=== PATIENT | male | born 1960 | race Caucasian/White ===

== ENCOUNTER → 2024-12-21 13:29 | Outpatient (CLI) | payer OTHER, SELFPAY ==
--- NOTE | 2024-12-21 13:33 | DI.CT.S_ITS ---
PROCEDURE: CT CHEST WO CON INDICATIONS: aneurysm ascending aorta TECHNIQUE: Noncontrast 5 mm thick sections acquired from the pulmonary apices to the posterior costophrenic angles. 1 mm lung window, 5 mm thick coronal and sagittal and 7 mm axial MIP reformats were then acquired. For radiation dose reduction, the following was used: automated exposure control, adjustment of mA and/or kV according to patient size. COMPARISON: None. FINDINGS: Image quality: Diagnostic. Lower Neck: No enlarged lymph nodes. Thyroid: No thyroid nodules which require sonographic follow up, per consensus guidelines. Axillae: No enlarged lymph nodes. Chest Wall: Pacemaking/defibrillation device and dual chamber leads in expected positions. Bones: Unremarkable. Lungs and Pleura: No pneumothorax or pleural effusions. No consolidation or suspicious nodules. Heart: Heart size is normal. No pericardial effusion. Thoracic Vessels: The aorta and pulmonary arteries demonstrate normal size. Mediastinum and Josselyn: No enlarged lymph nodes. Esophagus: No wall thickening. No hiatal hernia. Upper Abdomen: Visualized upper abdomen solid organs and bowel loops appear normal. IMPRESSION: Pacemaker and leads as discussed. No cardiomegaly or CHF. No aneurysm found. Dictated by: Gianni Mckay M.D. on 12/22/2024 at 11:46 Approved by: Gianni Mckay M.D. on 12/22/2024 at 11:48
== END ==
PROVIDERS: Referring Provider Internal Medicine; Visit Provider Internal Medicine
DX: I71.21 Aneurysm of the ascending aorta, without rupture (principal); Z95.0 Presence of cardiac pacemaker
CPT/HCPCS: 71250

== ENCOUNTER → 2025-01-27 14:24 | Outpatient (CLI) | payer OTHER, SELFPAY ==
--- NOTE | 2025-01-27 14:26 | DI.ECHO.S_ITS ---
[facility] : : [address] : : [place] : : [id number] : : Phone: [phone] Echocardiogram Report + + :Name: LEONOR JENKINS Study Date: 01/27/2025 Height: 73 in : :[facility] ReadingLocation: Weight: 376 lb: : Gender: Male BSA: 2.8 m2 : :: 1960 Age: 64 yrs : :Reason For Study: SYSTOLIC HEART FAILURE : :Ordering Physician: FRANCIS JACKSON Performed By: Ayan Dejesus : :Referring: FRANCIS JACKSON : + + Interpretation Summary TDS - PT SCANNED SUPINE DUE TO BAD SHOULDER, MORBID OBESITY, LUNG INTERFERENCE 1. The left ventricular contractility is mildly compromised. Estimate ejection fraction is 40 to 45% with global hypokinesis. Mild to moderate concentric LVH. Grade 1 diastolic dysfunction. 2. The right ventricle was not well-visualized. However in limited views, the contractility appears to be preserved. 3. Mild right atrial enlargement noted. The left ventricular cavity is mildly dilated. 4. No significant valvular abnormalities noted. 5. No obvious intracardiac shunts. 6. No intracardiac masses nor thrombi. 7. No hemodynamically significant pericardial effusion. 8. Low right-sided filling pressures. 9. Mildly dilated aortic root without obvious dissection. Conclusion: Mildly compromised left ventricular systolic function with no significant valvular abnormalities. Procedure: A two-dimensional transthoracic echocardiogram with color flow and Doppler was performed. The study quality was technically difficult. A contrast injection of Definity was performed to improve assessment of LV function. There is no prior echocardiogram noted for this patient. The patient was in normal sinus rhythm during the exam. Left Ventricle: The left ventricle is mildly dilated. Left ventricular wall thickness is mild-moderately increased. There is no ventricular septal defect visualized. The ejection fraction is estimated to be 40-45%. There is mild global hypokinesis of the left ventricle. Diastolic parameters suggest a relaxation abnormality of the left ventricle, consistent with probable normal filling pressures. Right Ventricle: The right ventricle is not well visualized. Atria: The left atrial size is normal. The right atrium is mildly dilated. There is no Doppler evidence for an interatrial shunt. Mitral Valve: The mitral valve leaflets appear normal. There is no evidence of stenosis, fluttering, or prolapse. There is no mitral regurgitation noted. Aortic Valve: The aortic valve is grossly normal. No aortic regurgitation is present. Tricuspid Valve: The tricuspid valve is not well visualized. No tricuspid regurgitation. Pulmonic Valve: The pulmonic valve is not well visualized. There is no pulmonic valvular regurgitation. Great Vessels: The aortic root is mildly dilated. The ascending aorta is at the upper limits of normal in size. The pulmonary artery is normal size. The IVC is of normal diameter and collapses greater than 50% with a sniff. This suggests a low right atrial pressure of 3 mm Hg. Pericardium/ Pleura There is no pericardial effusion. There is no pleural effusion. MMode/2D Measurements & Calculations LVIDd: 6.2 cm LVOT diam: 2.7 cm LVIDs: 4.9 cm Ao root diam: 4.1 cm FS: 21.2 % asc Aorta Diam: 3.7 cm EPSS: 2.0 cm IVSd: 1.4 cm LVPWd: 1.4 cm LV cordova. diameter/BSA (cm/m^2): 2.2 LV sys. diameter/BSA (cm/m^2): 1.7 LA A2 area: 28.7 cm2 RA long axis: 4.8 cm LA A4 area: 24.5 cm2 RA area: 19.2 cm2 LA length (vol): 6.5 cm RA vol: 65.5 ml LA vol: 91.6 ml RA : 23.3 ml/m2 LA vol index: 32.5 ml/m2 IVC diam: 1.7 cm TAPSE: 2.8 cm Doppler Measurements & Calculations Ao V2 max: 137.3 cm/sec LVOT Max Matthew: 99.4 cm/sec Ao V2 mean: 103.9 cm/sec LV V1 max P.9 mmHg Ao max P.5 mmHg LV V1 VTI: 20.4 cm Ao mean P.7 mmHg KHARI(I,D): 3.9 cm2 Ao V2 VTI: 29.6 cm KHARI(V,D): 4.1 cm2 sev ratio: 0.69 KHARI indexed to BSA (cm^2/m^2): 1.4 MV E max matthew: 52.4 cm/sec PA V2 max: 65.6 cm/sec MV A max matthew: 100.1 cm/sec PA V2 mean: 44.1 cm/sec MV E/A: 0.52 PA mean P.88 mmHg MV dec time: 0.29 sec PA pr(Accel): 37.9 mmHg SV(LVOT): 116.6 ml Reading Physician:RADHA
== END ==
LOC: ECHO 14:26
PROVIDERS: Referring Provider Internal Medicine; Visit Provider Internal Medicine
DX: I50.22 Chronic systolic (congestive) heart failure (principal); I77.810 Thoracic aortic ectasia
CPT/HCPCS: C8929; Q9957

== ENCOUNTER → 2025-03-13 12:33 | Outpatient (CLI) | payer OTHER, SELFPAY ==
--- NOTE | 2025-03-14 16:52 | DI.NM.S_ITS ---
DATE OF SERVICE: 03/13/2025 PHARMACOLOGICAL PERFUSION STUDY INDICATIONS: Congestive heart failure, AFib, Bi-V AICD. Perfusion study is being done for CAD risk stratification. RADIOPHARMACEUTICAL: 26.6 millicurie technetium-99m Myoview IV was injected at stress and 27.5 millicurie technetium-99m Myoview IV was injected at rest. CARDIAC STRESS: The patient underwent IV Lexiscan perfusion study under the supervision of an attending staff using standard intravenous Lexiscan as per protocol. The patient remained hemodynamically stable. Baseline rhythm is A-sensed and ventricular-paced rhythm. Baseline blood pressure 142/98. During stress, no convincing new ischemic changes or arrhythmias. No chest pain. RAW DATA: The patient's weight is 364 pounds. Increased subdiaphragmatic activity. GATED STUDY: Resting LV ejection fraction 45 and stress LV ejection fraction 51%. No obvious wall motion abnormalities seen, however, quality is not good. Resting end-diastolic volume 209 mL suggestive of dilated LV. TID ratio 0.85, which is within normal limits. Lung/heart ratio 0.30, which is within normal limits. MYOCARDIAL PERFUSION SCAN: Stress supine, resting supine images were compared to each other. Please note that there is no stress prone images. The patient has predominantly fixed moderate-size severely decreased perfusion of basal inferolateral wall as well as basal inferior wall and distal inferolateral wall without any significant reversible ischemia. CONCLUSION: 1. No significant reversible ischemia. 2. Predominantly fixed severely decreased perfusion of basal inferior wall extending into the basal inferolateral and distal inferolateral wall. There are no prone images. The patient's weight is 364 pounds. There is increased subdiaphragmatic activity. This could be due to persistent tissue attenuation artifact, however, cannot rule out possibility of nontransmural myocardial infarction in those segments. Correlate clinically. 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
== END ==
LOC: NUCM 12:34
PROVIDERS: Referring Provider Internal Medicine; Visit Provider Internal Medicine
DX: I50.22 Chronic systolic (congestive) heart failure (principal); I48.91 Unspecified atrial fibrillation; E66.01 Morbid (severe) obesity due to excess calories; Z68.42 Body mass index [BMI] 45.0-49.9, adult; Z95.810 Presence of automatic (implantable) cardiac defibrillator
CPT/HCPCS: 78452; 93017; A9502; J2785

== ENCOUNTER → 2025-08-18 12:22 | Outpatient (CLI) | payer OTHER, SELFPAY ==
--- NOTE | 2025-08-18 01:05 | DI.ECHO.S_ITS ---
[facility]---------+ [facility] : : [address] : : [place] : : [id number] : : Phone: [phone] Echocardiogram Report + + :Name: LEONOR JENKINS Study Date: 08/18/2025 Height: 75 in : :Hospital ReadingLocation: Weight: 355 lb: : Gender: Male BSA: 2.8 m2 : :: 1960 Age: 65 yrs : :Reason For Study: CHRONIC HEART FAILURE : :Ordering Physician: FRANCIS JACKSON Performed By: Ayan Dejesus : :Referring: FRANCIS JACKSON : + + Interpretation Summary TDS - MORBID OBESITY, LUNG INTERFERENCE, UNABLE TO POSITION FOR EXAM - SCANNED SUPINE Technically difficult study secondary to poor acoustic windows. Intracardiac echo contrast utilized. - The left ventricular contractility is borderline. Estimated ejection fraction is approximately 50 to 55% with no segmental wall motion abnormalities. Mild to moderate concentric LVH. - The right ventricle was not well-visualized. - No obvious valvular insufficiencies noted on Doppler interrogation. - Mildly dilated aortic root without obvious dissection. - No obvious intracardiac masses nor thrombi. - No hemodynamically significant pericardial effusion. Conclusion: Low normal left ventricular systolic function. When compared with previous echocardiogram, there appears to be improvement of the left ventricular systolic function. Procedure: A two-dimensional transthoracic echocardiogram with color flow and Doppler was performed in limited views only to assess EF. A contrast injection of Definity was performed to improve assessment of LV function. The study quality was technically difficult. Comparison is made with the echocardiogram of 01/27/2025. The patient was in normal sinus rhythm during the exam. Left Ventricle: The left ventricle is normal in size. Left ventricular wall thickness is mild-moderately increased. The ejection fraction is estimated to be 50-55%. Mitral Valve: There is no mitral regurgitation noted. Aortic Valve: No aortic regurgitation is present. Tricuspid Valve: No tricuspid regurgitation. Pulmonic Valve: There is no pulmonic valvular regurgitation. Great Vessels: The aortic root is mildly dilated. The ascending aorta is mildly enlarged. Pericardium/ Pleura There is no pericardial effusion. MMode/2D Measurements & Calculations LVIDd: 5.8 cm Ao root diam: 4.1 cm LVIDs: 4.0 cm asc Aorta Diam: 3.8 cm FS: 31.3 % IVSd: 1.3 cm LVPWd: 1.4 cm LV cordova. diameter/BSA (cm/m^2): 2.1 LV sys. diameter/BSA (cm/m^2): 1.4 Reading Physician:RADHA
== END ==
LOC: ECHO 12:23
PROVIDERS: Referring Provider Internal Medicine; Visit Provider Internal Medicine
DX: I50.22 Chronic systolic (congestive) heart failure (principal); E66.01 Morbid (severe) obesity due to excess calories
CPT/HCPCS: 93307; Q9957